=== PATIENT | male | born 1935 | race Caucasian/White ===

== ENCOUNTER → 2019-11-08 12:19 | Outpatient (CLI) | payer MEDICARE, SELFPAY ==
[2019-11-09 18:45] LABS: COVID19 Sendout Not Detected (Not Detect)
== END ==
PROVIDERS: PCP Family Medicine; Visit Provider Physician Assistant
DX: Z11.9 Encounter for screening for infectious and parasitic diseases, unspecified (principal)
CPT/HCPCS: 87635

== ENCOUNTER 2019-11-11 11:32 | Inpatient (IN) | payer MEDICARE, SELFPAY ==
[2019-11-07 13:32] VITALS: BMI 25.9
[2019-11-11] VITALS (19 sets, daily range): BP systolic 120–191; BP diastolic 9–114; PULSE 83–107; RESP 15–22; TEMP 36.1–36.7; O2SAT 96–100; BMI 56.1
--- NOTE | 2019-11-11 12:05 | PM.PREOP ---
Pre-operative Note COVID-19 COVID-19 status: Negative Result date/Date tested (Pos, Neg/Pending): 12/09/19 Interval Note History & Physical reviewed/Exam performed by Physician: Yes Changes to H&P: No
--- NOTE | 2019-11-11 12:08 | DI.RAD.S_ITS ---
PROCEDURE: XR SHOULDER RT 1V INDICATIONS: status post right total shoulder TECHNIQUE: Single AP view of the shoulder acquired. [facility] [place], XR SHOULDER 2+ VIEWS RIGHT, 09/04/2019, 10:34. FINDINGS: Bones: Postsurgical changes are seen from interval reverse total shoulder arthroplasty. Soft tissues: Postsurgical changes are seen surrounding the shoulder including an drain in the soft tissues. Sternotomy wires are noted. IMPRESSION: Status post reverse total shoulder arthroplasty with expected postoperative findings. Dictated by: John Farrar M.D. on 11/11/2019 at 15:22 Approved by: John Farrar M.D. on 11/11/2019 at 15:24
[2019-11-11] MEDS: LACTATED RINGERS 1,000 ML 42 ML IV ×2 (12:38→14:28)
[2019-11-11] MEDS: PREGABALIN 75 MG CAPSULE PO (12:40)
[2019-11-11] MEDS: ACETAMINOPHEN 325 MG TABLET 975 MG PO (12:40)
--- NOTE | 2019-11-11 12:57 | SUR.PREOP ---
Block start time [1245] . Monitoring initiated and maintained throughout procedure. Oxygen and medications given per anesthesiologist instructions. Patient remained stable throughout procedure, no adverse reactions noted. Block end time [1252]. pt significant other at bedside during procedure. pt responding to verbal stimuli throughout procedure. pt transferred to or after completion of block in stable condition, vss. bedside report given to YANA Lisa.
[2019-11-11] MEDS: CEFAZOLIN 2 GM/100 ML FROZ.PIGGY IV (12:58)
[2019-11-11] MEDS: TRANEXAMIC ACID 1,000 MG VIAL 1000 MG INJ ×2 (13:20→14:29)
--- NOTE | 2019-11-11 13:30 | SUR.OPER ---
Beach chair with Schlein shoulder positioner. Lower body on padded OR bed. Head in foam padded head cradle, secured with straps. Non-operative arm secured <90 degrees abduction. Pillow under knees. Safety belt at thigh. Cloth tape over blanket over lower legs.
[2019-11-11] MEDS: BUPIVACAINE 0.5% W/ EPI (PF) 30 ML VIAL INJ (13:40)
--- NOTE | 2019-11-11 14:00 | PM.PROC.1 ---
Procedures Date/Time Date of procedure: 11/11/19 Time of procedure: 12:40 General Procedure description: Ultrasound guided interscalene brachial plexus nerve block for post op pain control after right total shoulder arthroplsaty by Dr. Baldwin. Risk and benefits of procedure discussed with patient. ASA monitoring applied to patient. O2 given via nasal cannula. 1 mg Versed and 50 mcg fentanyl given for procedural sedation. Skin site was prepped with chlorhexidine and allowed to fully dry. Sterile gloves, mask, hat and probe cover were used to maintain sterility. 2% lidocaine and 30ga needle was used to make a small skin wheal at needle insertion site. Under ultrasound guidance, a 21ga 50mm Pajunk needle was directed into the interscalene groove (middle/anterior scalenes) near the brachial plexus. Patient reported no parasthesias. After negative aspiration, 20 mL 0.5% ropivicaine and 10mg dexamethasone were injected around brachial plexus. Patient tolerated procedure well.
--- NOTE | 2019-11-11 14:51 | PM.OP.1 ---
Operative Date/Time/Diagnoses Date of procedure: 11/11/19 Time of procedure: 14:51 Pre-op diagnosis: Massive irreparable chronic rotator cuff tear of the right shoulder Post-op diagnosis: same Procedure & Clinicians Procedure: Right reverse total shoulder replacement Same procedure as scheduled: Yes Indications: The patient is had chronic right shoulder pain unresponsive to nonoperative therapies. Radiographic studies have revealed changes consistent with a massive rotator cuff tear and arthritis. They have elected to proceed with reverse total shoulder replacement after discussion of the risks benefits and alternatives. Risks discussed included but were not limited to: Failure to improve, instability, infection, nerve damage, deep venous thrombosis, pulmonary embolism, stroke, coma, myocardial infarction and . Surgeon: Haider Baldwin Business Account Leader: Margarito Álvarez Click Yes if Unassisted: No Anesthesia Type: General, Peripheral nerve block and Local Operative Notes Findings: Tear of the upper half of the subscapularis, supraspinatus and infraspinatus. Early arthritic change. Closure Type: primary Specimen(s): none sent Prosthetic devices, grafts, tissues, transplants, or devices: Implants used in this procedure were manufactured by the [employer] and included an RSP reverse total shoulder prosthesis with a 30 mm glenoid base plate, locking screws of 14, 14, 26 and 30 mm in length, a 32 mm neutral glenoid head with retaining screw, a size 14 reverse stem and a 32 mm standard +4 humeral insert. Applied: drain(s) and implant(s) Estimated Blood Loss (mL): 200 Blood products transfused: none Procedure in detail: The patient was seen in the preoperative area where they identified the right shoulder as the operative site and this was marked with my initials. They received preoperative antibiotics and underwent the induction of an interscalene block. They were taken to the operating room and placed on the operating room table in a supine position with the underwent the induction of a general anesthetic. There were then repositioned in the ?beach chair? position using a dedicated positioner. All pressure points were well padded. The knees were slightly bent to prevent tension on the sciatic nerves. The right arm was prepared from the fingertips to the base of the neck with ChloraPrep in the usual fashion and draped through sterile drapes. An approximately 15 cm incision was created starting at the clavicle just above the coracoid and going to the deltoid insertion. The deltopectoral interval was used to access the shoulder taking the vein to the medial side. The vein was protected throughout the case. The upper 1 cm of the pectoralis major was released. The biceps tendon was identified and used as a guide to releasing the remaining subscapularis. The biceps itself was tenodesed over the pectoralis tendon using a suture. The shoulder was dislocated and a proximal humeral osteotomy performed using an extramedullary guide. A proximal humeral protector was then placed. Retractors were placed access the glenoid. A 360 degree release of the glenoid soft tissues was performed with care being taken to protect the axillary nerve. The guide was used to drill the guide hole in the center of the inferior glenoid. The tap was placed and used as a guide for the reamer. The tap was then removed and the glenoid base plate inserted. The peripheral locking screws were then placed through the appropriate guide. A trial glenoid head was applied. We then turned our attention to the humerus. The proximal humeral protector was removed. Cylindrical reamers were used to size the canal. Broaching was then performed beginning with a small broach and working up until a line to line fit with the reamer was obtained. The guide for the proximal metaphyseal reamer was then applied and the metaphysis was reamed appropriately. The trial metaphyseal portion of the body was then applied to the broach. Trial reductions were performed and the size of the glenoid head and the cup were optimized. Stability was checked in maximal internal and external rotation and range of motion was checked to allow access to the top of the head, internal rotation to an excess of 50? in the ?scarecrow position? and the ability to reach the groin. The appropriate final prosthetic components were then opened. The glenoid head was impacted into position and checked for rotational and axial stability before placing the set screw. The humeral prosthetic was then impacted into position. The humeral cup was placed. The joint was relocated and irrigated. A deep drain was placed. The deltopectoral interval was reapproximated with 0 Vicryl. Subcutaneous layer was closed with interrupted 3-0 Vicryl and skin with a running 3 0 V lock suture. Subcutaneous tissues were then infiltrated with 0.5% Marcaine for postoperative pain control. An Aquacel Ag dressing was applied and the patient's arm was placed in a sling. The patient was then transferred to the recovery room in good condition having tolerated the procedure well. Complications: none Post-operative Condition: stable Disposition: PACU Plan for aftercare: The patient will be maintained in the sling with pendulum exercises only for the 1st 6 weeks. He will then be allowed active range of motion.
[2019-11-11] MEDS: LACTATED RINGERS 1,000 ML 125 ML IV (17:05)
[2019-11-11] MEDS: INSULIN ASPART 100 UNIT/ML INSULN PEN SUBCUT ×2 (17:06→21:10)
[2019-11-11] MEDS: HYDRALAZINE 25 MG TABLET PO ×2 (17:10→20:39)
[2019-11-11] MEDS: TAMSULOSIN 0.4 MG CAPSULE PO (20:39)
[2019-11-11] MEDS: METFORMIN HCL 500 MG TABLET 1000 MG PO (20:40)
[2019-11-11] MEDS: METOPROLOL IR 25 MG TABLET PO (20:40)
[2019-11-11] MEDS: ASPIRIN EC 81 MG TABLET PO (20:40)
[2019-11-11] MEDS: DOCUSATE 100 MG CAPSULE PO (20:40)
[2019-11-11] MEDS: cloNIDine 0.1 MG TABLET PO (20:40)
[2019-11-11] MEDS: GLIMEPIRIDE 2 MG TABLET PO (20:41)
--- NOTE | 2019-11-11 23:25 | PC.NURSE ---
Pt arrived at 1540 from the PACU Alert/oriented. IVF LR infusing @ 125cc/hr via pump w/o incidence. Dag to the right shoulder CDI, Hemavac intact/patent. CBG 203 AC & 270 @ HS, S/S was given as per orders. Stable post op course. Call light w/in reach, bed alarm on for pt safety.
[2019-11-12 03:45] VITALS: BP 129/74; PULSE 85; RESP 18; TEMP 36.3; O2SAT 96
[2019-11-12 06:10] LABS: Hematocrit 38.3 % (41-53); Hemoglobin 12.8 g/dL (13.5-17.5); Mean Corpuscular HGB Conc 33.5 % (30-36); Mean Corpuscular Hemoglobin 29.3 PG (26-34); Mean Corpuscular Volume 87.6 fL (80-100); Platelet Count 223 X10^3/uL (150-400); Red Blood Cell Count 4.38 X10^6/uL (4.5-5.9); Red Cell Distribution Width 13.9 % (11.6-14.8); White Blood Cell Count 17.5 X10^3/uL (4.5-11.0)
[2019-11-12 07:25] VITALS: PULSE 80; RESP 19; TEMP 36.2; O2SAT 96
--- NOTE | 2019-11-12 07:30 | PM.DS.1 ---
History of Present Illness History of Present Illness Date Patient Seen: 11/12/19 Time Patient Seen: 07:30 Chief complaint: Right Total Shoulder Arthroplasty - Reverse Narrative: The history and physical is documented in the chart in a previously completed note, please refer to that note for this information. Discharge Providers Provider Date of admission: 11/11/19 11:32 Discharge Date: 11/12/19 Primary care physician: Miguel Squires MD Consults: 11/11/19 16:29 Consult to Discharge Planning Routine Comment: Consult to Physical Therapy Evaluate & Treat Comment: Physician Instructions: Evaluate and Treat Consult to Respiratory Therapy Evaluate & Treat Comment: Pendulums only for 6 weeks. Physician Instructions: Evaluate and treat Discharge provider: Haider Baldwin MD Summary Hospital Course Discharge Diagnosis: Massive irreparable right rotator cuff tear with early rotator cuff arthropathy. Hospital Course: The patient was admitted to the hospital and taken directly to the operating room on November 11, 2019. He underwent a right reverse total shoulder without complications. On postoperative day 1 he was comfortable in with minimal pain despite using only Tylenol for pain relief. At the time of this dictation the plan is for discharge later today. Status at Discharge Cognitive/behavioral status at discharge: oriented Functional status at discharge: independent ambulation Overall status at discharge: patient is progressing back to baseline Time Spent with Patient Time spent: Less than 30 minutes Exam Vital Signs (past 8 hours): - 11/12/19 03:45 Temperature 97.4 F L Pulse Rate 85 Respiratory Rate 18 Blood Pressure 129/74 Pulse Oximetry 96 Oxygen Delivery Method Room Air Oxygen Flow Rate 0 Narrative Exam Narrative: Right shoulder wound is dressed with no drainage on the bandage. Light touch is intact in the radial, ulnar, median, muscular cutaneous and axillary nerve distribution. He can extend his thumb, abduct his thumb, abduct his fingers and can fire his biceps and deltoid. Objective Labs Result Diagrams: 11/12/19 05:35 Labs: Laboratory Results - last 24 hr 11/12/19 05:35 WBC 17.5 H RBC 4.38 L Hgb 12.8 L Hct 38.3 L MCV 87.6 MCH 29.3 MCHC 33.5 RDW 13.9 Plt Count 223 Discharge Assessment & Plan Assessment and Plan Assessment: Stable postoperative day 1 status post right reverse total shoulder replacement. Pain control has been excellent. Plan of Treatment: Discharge to home. Follow-up will be in my office in 10-14 days. He has been instructed on activity limitations of doing pendulum exercises only and keeping his arm below shoulder level in front of his torso. He has been given a prescription for [place] at his request as he does not like oxycodone. He has been instructed to use low-dose aspirin for DVT prophylaxis. Discharge Plan Discharge Plan Patient Disposition: Home Discharge orders & Medications Prescriptions: New hydrocodone-acetaminophen 5-325 mg Tablet 1 tab PO Q4HR PRN (Reason: Pain, Mild (1-3)) Qty: 40 RF: 0 aspirin 81 mg Tablet,Delayed Release (Dr/Ec) 81 mg PO BID 42 Days Qty: 84 RF: 0 Continued atorvastatin 40 mg Tablet 40 mg PO DAILY RF: 0 metformin 500 mg Tablet 1,000 mg PO BID RF: 0 clonidine HCl 0.1 mg Tablet 0.1 mg PO BEDTIME RF: 0 glucosamine sulfate [Glucosamine] 500 mg Tablet 1,500 mg PO DAILY RF: 0 spironolactone 25 mg Tablet 12.5 mg PO DAILY RF: 0 glimepiride [Amaryl] 2 mg Tablet 2 mg PO BID RF: 0 tamsulosin [Flomax] 0.4 mg Capsule 0.4 mg PO BEDTIME RF: 0 zinc 50 mg Tablet 50 mg PO DAILY RF: 0 hydralazine 50 mg Tablet 25 mg PO TID RF: 0 metoprolol tartrate 25 mg Tablet 25 mg PO BID RF: 0 mesalamine [Lialda] 1.2 gram Tablet,Delayed Release (Dr/Ec) 2.4 g PO DAILY RF: 0 diclofenac sodium 1 % Gel 1 % TOPICAL Q6H PRN (Reason: pain) RF: 0 magnesium oxide 400 mg magnesium Capsule 400 mg PO DAILY RF: 0 pantoprazole [Protonix] 40 mg Tablet,Delayed Release (Dr/Ec) 40 mg PO DAILY RF: 0 Discontinued aspirin 81 mg Tablet,Delayed Release (Dr/Ec) 81 mg PO DAILY RF: 0 Follow up/Referrals: Haider Baldwin MD [Physician] - 2 Weeks Miguel Squires MD [Primary Care Provider] - Discharge Health Status Multidrug resistant organism: No MDRO Diet/Activity/Treatments Diet: Diet as Tolerated and Carb-consistent/Diabetic Activity: You may use your right hand in front of your body below shoulder level. Please remain in the sling except for doing pendulum exercises. Cold/Heat Therapy: Apply ice for 15 minutes every hour as needed for pain control to the right shoulder. Skin/Wound/Dressing Care Report to your healthcare provider any signs of infection, such as:: chills, fever, night sweats, increased pain, unusual drainage and unusual redness Dressing: Leave the dressing in place until your postoperative follow-up. You may shower with the dressing in place. If the center strip of the dressing becomes saturated with either water or blood, please call the office to have it evaluated. Visit Report/Discharge Packet Instructions: DI for Prescription Opioid Use, DI for Shoulder Replacement Stand Alone Forms: Surgery Discharge Discharge Data Primary Care Provider: Miguel Squires
[2019-11-12 07:45] VITALS: PULSE 78; RESP 16; O2SAT 98
[2019-11-12] MEDS: GLIMEPIRIDE 2 MG TABLET PO (08:15)
[2019-11-12] MEDS: ASPIRIN EC 81 MG TABLET PO (08:15)
[2019-11-12] MEDS: DOCUSATE 100 MG CAPSULE PO (08:15)
[2019-11-12] MEDS: ATORVASTATIN 20 MG TABLET 40 MG PO (08:15)
[2019-11-12] MEDS: MAGNESIUM OXIDE 400 MG TABLET PO (08:16)
[2019-11-12] MEDS: PANTOPRAZOLE 40 MG TABLET PO (08:16)
[2019-11-12] MEDS: SPIRONOLACTONE 25 MG TABLET 12.5 MG PO (08:16)
[2019-11-12] MEDS: MESALAMINE 800 MG TABLET.DR 2400 MG PO (08:16)
[2019-11-12] MEDS: METFORMIN HCL 500 MG TABLET 1000 MG PO (08:16)
[2019-11-12 08:19] VITALS: BP 135/73; PULSE 80
[2019-11-12] MEDS: METOPROLOL IR 25 MG TABLET PO (08:19)
[2019-11-12] MEDS: INSULIN ASPART 100 UNIT/ML INSULN PEN SUBCUT (08:19)
[2019-11-12] MEDS: HYDRALAZINE 25 MG TABLET PO (08:19)
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
--- NOTE | 2019-11-12 10:38 | PC.NURSE ---
Discharge note: Discharge instructions given to patient, discharge home via private vehicle per MD order and cleared by PT. Discussed importance of F/U with Dr. Baldwin in 2 weeks, s/sx of infections, and activity precautions. Verbalized understanding of instructions.
--- NOTE | 2019-11-12 10:42 | CM.DANOTE ---
Patient is an 83 year old male who was admitted on 11/11/19 for Right Total Shoulder. Pt has MCR and [employer] for insurance and his PCP is Dr. Miguel Squires. EMR was reviewed. Per Ortho MD, pt tolerated procedure well and stable for d/c home later today and no identified barriers to discharge. SW met bedside with pt and explained role and pt confirms that he lives at home in [facility] with a 24/7 Caregiver who is planning to provide transport home at d/c. Pt denies any hx of HH or SNF and states his DPOA is his sister Marilee and he provided copy for his file. Pt does not anticipate any needs and preference is to d/c home this morning via CG POV and has no concerns. Plan: SW to follow for pt d/c home today via CG POV and no SW needs at this time. IRMA [place] Discharge Planning/Care Management Advanced directive, confirm from FAMILY Start: 11/11/19 16:27 Freq: Q24H Status: Discharge Protocol: Document 11/11/19 20:19 KMD (Rec: 11/11/19 20:19 KMD [id number]) Advance Directive, confirm on record Time 20:19 Person contacted Pt Copy received No CM Discharge Assessment Start: 11/12/19 10:40 Freq: Status: Discharge Protocol: Document 11/12/19 10:41 BF (Rec: 11/12/19 10:42 BF [id number]) Discharge Planning Assessment Assigned Mate Fourth IRMA Mccarthy DPOA/Assigned Designee Name sister Marilee Gamez Contact Information [phone] Advance Directives? Yes Advance Directives on File No History Provided By Patient,Medical Record Has Patient been admitted in last 30 No days? Prior Living Arrangements House Household Members caregiver Type of transporation used prior to Relies on Others admit Independent with ADL's Yes Is patient alert and oriented? Yes Needs Assistance With Managing Medications,Home Chores / Shopping Caregiver for Another No Community Services used prior to Physical Therapy admission: Patient/Family Preference OP PT Therapy Barriers to Discharge No Discharge Plan Home Community Services Physical Therapy Transportation Arrangement Patient states his caregiver can provide transport home at d/c. Referrals Initiated None needed Whiteboard Updated in Patient Room with Yes name and ext. # of Mate Fourth Review Status In Process Please Provide Date Initial DC 11/12/19 Assessment Was Performed Next Review Type Continued Stay Review Pre-Anesthesia Assessment Start: 11/07/19 13:32 Freq: Status: Discharge Protocol: Document 11/07/19 13:32 CAB (Rec: 11/07/19 14:42 CAB [id number]) Pre-Anesthesia Assessment PAC Comment Pt appears to have memory issues, repeated medication information on what to take/ hold. Pt instructed to check blood sugar dos, gave pt surgery dept phone number to call dos for any questions/ concerns. Preferred Name Ajay Patient Information Reviewed Via Phone Assessment Assessment Completed With Patient H&P Completed Within 30 Days Yes Diagnostic Results BMP/CMP,EKG,Other Comment Outside BMP, A1c/EKG scanned to record-COVID screen @ Primary Care Provider Karoline Malik Medical Clearance Received Yes Seen Specialist in Last 12 Months Yes Specialist Seen Paid Search Analyst,Orthopedist Comment PCP clearance scanned to record Primary Language Amharic Paper Cup Machine Tender Required No Height 180.34 cm Weight 84.368 kg Body Mass Index (BMI) 25.9 Hearing Ability Hard of Hearing,Use of Hearing Aid Visual Assist Glasses Dentition Type Teeth, Natural Present Barriers to Learning Memory Other Aids Yes: CPAP Hx Anesthesia Reactions No Hx Family Anesthesia Reaction Yes: My sister has a terrible time coming out of anesthesia Hx Malignant Hyperthermia No Hx Blood Transfusions No Anesthesia Review Requested No alcohol intake current alcohol intake frequency a few times a month Smoking Status Former smoker how long ago did patient quit smoking Quit 04/10/59 Substance Use Type does not use Pain Present Pain Reported Musculoskeletal Symptoms Joint Pain,Limited Range of Motion History of Falling (Recent or History of No ) Patient is completely paralyzed or No completely immobile Mental Status Oriented to own ability Is patient on oxygen? No Does patient have HDEZ/SOB No Hx Sleep Apnea Yes CPAP/BIPAP use prescribed and used routinely Will Bring CPAP/BIPAP DOS Yes Currently Taking a Beta Leonidas Yes: Metoprolol Can You Climb a Flight of Stairs Without Yes SOB Hx Chest Pain No: Denies any chest pain prior to CABG Hx SOB No Hx Syncope or Dizziness No Anti-Coagulant Therapy No Has a Paid Search Analyst Yes: Dr. Fletcher-last visit 10/31/19 Hx Pacemaker/ICD No Pacemaker Rep Required? No Cardiac Clearance Received Yes Comment Cardiac records scanned to record Diet Type At Home Regular dysphagia No Gastrointestinal Symptoms Constipation Urinary Catheter Present No Hx Urinary Self Catheterization No Diabetes Yes: Pt checks once a day HgbA1C 6.5 Date 10/07/19 Hx Drug Resistant Organism No Presence of External or Internal Medical Yes: CPAP, CABG Devices Have you had any close contact with No someone diagnosed with COVID-19? Marital Status / Lives With significant other Prior Living Arrangements House Number of Floors (Floors) One Floor Support System Significant Other Does the Patient Have Assistance After Yes Surgery Patient Discharge Plan Description Return Home Comment Pt advised possible same day surgery per surgeon Feels Safe in Current Environment Yes Been Physically Hurt or Threatened By a No Person in Current Environment Do you have thoughts of harming yourself None or others? Are you currently considering suicide? No Do you have a plan to hurt yourself or No Plan others? Do You Have Any Spiritual Beliefs That No May Affect Your HC Choices? Do You Have Any Cultural Practices That No May Affect Your HC Choices? Who Can We Speak to About Patient's Care Family, friends Identifying Code for Release of Patient Declines to issue Information Health Care Proxy/Next of Kin Ancelmo (sister) Health Care Proxy Emergency Contact Name Ashwin (S.O.) Emergency Contact Advance Directives? Yes Advance Directives on File No Requested Patient Bring Advanced Yes Directives DOS Power of Abrasive Grader Yes Power of Abrasive Grader Name Ancelmo (sister) Power of Abrasive Grader PAC Instructions Medications to take/avoid, Nasal antibiotic,No ETOH/ petroleum product on skin DOS, NPO,Pre-surgical wash,Sensory aids,Sturdy shoes/comfortable clothes,Do not bring valuables and remove jewelry
--- NOTE | 2020-01-26 13:34 | PC.NURSE ---
Allergy list faxed to [facility] for continuity of care
== END 2019-11-12 10:41 | disposition home or self-care (01) | DRG 483 ==
PROVIDERS: Admitting Provider Orthopaedic Surgery; PCP Family Medicine; Referring Provider Orthopaedic Surgery; Visit Provider Orthopaedic Surgery
PROC: 0RRJ00Z Replacement of Right Shoulder Joint with Reverse Ball and Socket Synthetic Substitute, Open Approach (ICD-10-PCS; CPT 23472; principal; 2019-11-11 13:15)
DX: M75.121 Complete rotator cuff tear or rupture of right shoulder, not specified as traumatic (principal); G47.33 Obstructive sleep apnea (adult) (pediatric); I10 Essential (primary) hypertension; E11.9 Type 2 diabetes mellitus without complications; I25.10 Atherosclerotic heart disease of native coronary artery without angina pectoris; N40.1 Benign prostatic hyperplasia with lower urinary tract symptoms; E78.5 Hyperlipidemia, unspecified; K21.9 Gastro-esophageal reflux disease without esophagitis; Z86.73 Personal history of transient ischemic attack (TIA), and cerebral infarction without residual deficits; Z95.1 Presence of aortocoronary bypass graft; Z79.84 Long term (current) use of oral hypoglycemic drugs; Z11.59 Encounter for screening for other viral diseases
CPT/HCPCS: 36415; 64450; 73020; 82962; 85027; 87635; 97161; C1776; J0690; J1100; J2250; J2405; J2704; J3010